=== PATIENT | male | born 2000 | race Two or more races ===

== ENCOUNTER 2021-02-02 12:34 | Emergency (ER) | payer OTHER ==
[~2021-02-02] VITALS: Ht 190.5 cm; Wt 70.5 kg
[2021-02-02 13:29] VITALS: BP 110/71
[2021-02-02] MEDS ORDERED: HYDR-3686 PO (15:15)
[2021-02-02] MEDS ORDERED: BETA15CR4 TOP (15:15)
[2021-02-02] MEDS ORDERED: PRED20TA PO (15:15)
== END 2021-02-02 15:25 | disposition home or self-care (01) ==
LOC: ER 12:36
DX: L23.9 Allergic contact dermatitis, unspecified cause (principal); Z79.899 Other long term (current) drug therapy
CPT/HCPCS: 99283